=== PATIENT | male | born 1960 | race Caucasian/White ===

== ENCOUNTER 2022-12-17 09:07 | Outpatient (CLI) | payer OTHER, SELFPAY | END 2022-12-17 09:08 | disposition home or self-care (01) | PROVIDERS: PCP Family Medicine; Visit Provider Family Medicine | DX: Z00.00 Encounter for general adult medical examination without abnormal findings (principal); E78.00 Pure hypercholesterolemia, unspecified; Z12.5 Encounter for screening for malignant neoplasm of prostate | CPT/HCPCS: 80053; 80061; 84153 ==

== ENCOUNTER 2024-03-23 08:58 | Outpatient (CLI) | payer OTHER, SELFPAY | END 2024-03-23 08:59 | disposition home or self-care (01) | LOC: NFLDREF 03-24 15:23 | PROVIDERS: PCP Family Medicine; Referring Provider Family Medicine; Visit Provider Family Medicine | DX: Z13.1 Encounter for screening for diabetes mellitus (principal); Z13.6 Encounter for screening for cardiovascular disorders; Z12.5 Encounter for screening for malignant neoplasm of prostate | CPT/HCPCS: 80053; 80061; G0103 ==

== ENCOUNTER 2024-04-13 10:52 | Outpatient (CLI) | payer OTHER, SELFPAY ==
--- NOTE | 2024-04-13 12:14 | W.ANESCHARGE ---
Anesthesia Charges Start Date/Time Anesthesia Start Date: 04/13/24 Anesthesia Start Time: 11:41 Stop Date/Time Anesthesia Stop Date: 04/13/24 Anesthesia Stop Time: 12:11
== END 2024-04-13 10:53 | disposition home or self-care (01) ==
LOC: OP CLINIC 10:53
PROVIDERS: PCP Family Medicine; Visit Provider Surgery
DX: Z12.11 Encounter for screening for malignant neoplasm of colon (principal); K63.5 Polyp of colon; K57.30 Diverticulosis of large intestine without perforation or abscess without bleeding
CPT/HCPCS: 00811; 45385; 88305; J2704

== ENCOUNTER 2024-08-26 12:23 | Outpatient (CLI) | payer OTHER, SELFPAY | END 2024-08-26 12:24 | disposition home or self-care (01) | LOC: NFLDREF 12:24 | PROVIDERS: PCP Family Medicine; Visit Provider Family Medicine | DX: S40.861A Insect bite (nonvenomous) of right upper arm, initial encounter (principal) | CPT/HCPCS: 86618 ==

== ENCOUNTER 2025-08-12 11:39 | Emergency (ER) | payer OTHER, SELFPAY ==
[2025-08-12 11:47] VITALS: BP 162/97; PULSE 62; RESP 18; TEMP 36.2; O2SAT 97
--- NOTE | 2025-08-12 11:54 | ED_ITS ---
HPI - Abdominal Pain General Time Seen by Provider: 11:54 Date Seen: 08/12/25 Chief Complaint: Abdominal Pain Stated Complaint: Abdominal pain Time Seen by Provider: 08/12/25 11:53 Source: patient and RN notes reviewed Mode of arrival: ambulatory Limitations: no limitations History of Present Illness HPI narrative: Rodolfo is a very pleasant 64-year-old gentleman with history of elevated cholesterol, left inguinal hernia repair 5 years ago with mesh and without complications who comes to the emergency room for evaluation of pelvic pain. She notes the onset of pelvic pain above his pubic bone several weeks ago that has become increasingly worse. He notes that it seems to be over his bladder area any thinks he has noticed that he is going to the bathroom more often. He notes that he does do a job which involves quite a bit a lifting. He works at an [employer]. He cannot recall any specific trauma or exact moment when the pain started. Patient notes again that the pain has been increasing. Initially much worse with lifting or pickleball. Now it is even present when he is just moving around. At rest it seems to go away. The pain does occasionally radiate somewhat into his scrotum but not into his rectum. He does have some mild back pain today because he was recently lifting some heavy objects. This is not unusual for him. He has not noticed any unusual bulging in his lower abdomen or in his scrotum. He has no history of constipation fever unusual weight loss or night sweats. Related Data Previous Rx's ?Medication ?Instructions ?Recorded rosuvastatin 5 mg tablet 5 mg PO QHS #90 tabs 5 sildenafil (pulm.hypertension) 20 20 - 100 mg (1 - 5 x 20 mg) PO 07/20/25 mg tablet .PRN PRN sexual activity #60 tabs Allergies Allergy/AdvReac Type Severity Reaction Status Date / Time erythromycin base Allergy Mild abdominal Verified 08/12/25 14:57 Penicillins Allergy Unknown Verified 08/12/25 14:57 Sulfa (Sulfonamide Allergy Unknown Verified 08/12/25 14:57 Antibiotics) Review of Systems Status of ROS Reports: 10 or more systems reviewed and unremarkable except as noted in History and below Const Denies: fever, chills or fatigue ENMT Denies: nasal congestion Cardio Denies: chest pain, lightheadedness or shortness of breath with exertion Resp Denies: shortness of breath or cough GI Reports: abdominal pain; Denies: nausea, vomiting, diarrhea or constipation Reports: urinary frequency and urinary urgency; Denies: painful urination or blood in urine Musculo Reports: back pain (After playing pickle ball) Endo Denies: fatigue [facility] Medical History Hyperlipidemia ?E78.5 - Hyperlipidemia, unspecified (ICD-10) Dysfunction of eustachian tube ?H69.80 - Other specified disorders of Eustachian tube, unspecified ear (ICD- 10) Acute sinusitis ?J01.90 - Acute sinusitis, unspecified (ICD-10) Social History Smoking Status: Never smoker Do you use any of these nicotine containing products: None How often do you have a drink containing alcohol: monthly or less AUDIT-C Alcohol total score: 1 Non-prescribed substance use: denies use Exam Narrative: Exam Narrative: Alert and oriented, nontoxic in appearance. Mentation and speech normal Face symmetrical, external ears eyes nose clear. Oral cavity moist mucous memb ranes. Heart with regular rate and rhythm. Lungs are clear bilaterally. No CVA tenderness with percussion. Abdomen is soft and nontender. I do not notice any hernias in the lower abdomen in the inguinal area. Are without any pain with palpation. No unusual bulging in the scrotum or swelling or redness. Moving extremities without difficulty. Const: Vital Signs, click to edit/add: Vital Signs - 24 hr 08/12/25 11:47 08/12/25 13:52 Temperature 97.2 F L Pulse Rate [Pulse Oximeter] 62 61 Respiratory Rate 18 14 Blood Pressure [Ri ght Upper Arm] 162/97 H 142/93 H Pulse Oximetry 97 97 Oxygen Delivery Me thod Room Air Room Air Documenting provider has reviewed patient's vital signs: yes Course Course ED Course: Differential diagnosis includes but is not limited to diverticulitis, colitis, urinary retention, musculoskeletal injury. No palpation of hernia at this time. At this time will start with bladder scan post pre and postvoid. If that does not show any evidence of urinary retention would recommend CT of the abdomen along with CBC, comprehensive, CRP, urinalysis. Reevaluation(s) Reevaluation #1: Postvoid scan did not show any evidence of urinary retention. Thus we will pr oceed with labs and CT. Vital Signs Vital signs: Initial Vital Signs Temperature 97.2 F L 08/12/25 11:47 Temperature Source Temporal Artery Scan 08/12/25 11:47 Pulse Rate 62 08/12/25 11:47 Respiratory Rate 18 08/12/25 11:47 Blood Pressure 162/97 H 08/12/25 11:47 Blood Pressure Mean 118 H 08/12/25 11:47 Blood Pressure Position Sitting 08/12/25 11:47 Pulse Oximetry 97 08/12/25 11:47 Oxygen Delivery Method Room Air 08/12/25 11:47 Vital Signs Temperature 97.2 F L 08/12/25 11:47 Pulse Rate 62 08/12/25 11:47 Respiratory Rate 18 08/12/25 11:47 Blood Pressure 162/97 H 08/12/25 11:47 Pulse Oximetry 97 08/12/25 11:47 Oxygen Delivery Method Room Air 08/12/25 11:47 Temperature 97.2 F L 08/12/25 11:47 Pulse Rate 61 08/12/25 13:52 Respiratory Rate 14 08/12/25 13:52 Blood Pressure 142/93 H 08/12/25 13:52 Pulse Oximetry 97 08/12/25 13:52 Oxygen Delivery Method Room Air 08/12/25 13:52 Medications Administered Medications: Discontinued Medications Generic Name Dose Route Start Last Admin Trade Name Freq PRN Reason Stop Dose Admin Sodium Chloride 500 mls @ 500 mls/hr 08/12/25 12:33 08/12/25 12:49 0.9 % Sodium Chloride 500 Ml IV 08/12/25 13:32 500 mls/hr .Q1H ELVIA Administration MDM - Abdominal Pain MDM Narrative Medical decision making narrative: 1. Suprapubic abdominal pain-with the exception of right inguinal hernia, fat containing that is quite small no abnormalities noted on the CT. In addition CRP and white count are within normal limits. No evidence of urinary retention. No symptoms of prostatitis. At this time I am wondering if the pain he is experiencing is muscular in etiology. Suggest ibuprofen or Tylenol as needed for pain. Of course should he start experiencing blood per rectum or blood in his urine or increasing symptoms would have him return to the ED. 2. Right inguinal hernia-I did not palpate this but this was noted on CT. Would have Gene follow-up with our surgical consultants because his pain definitely increases with any sort of lifting. 3. Disposition-home at this time. Return for worsening symptoms and as needed. Medical Records Attestation: I reviewed the patient's medical records. Lab Data Attestation: I reviewed the patient's lab results. Labs: Lab Results 08/12/25 08/12/25 08/12/25 Range/Units 12:30 13:21 13:25 WBC 6.00 (4.50-11.00) K/uL RBC 5.05 (4.30-5.90) m/uL Hgb 15.8 (13.5-17.5) gm/dL Hct 47.5 (37.0-53.0) % MCV 94 (80-100) fL MCH 31 (26-34) pg MCHC 33 (32-36) gm/dL RDW Coeff of Alejandra 12.5 (11.5-15.5) % Plt Count 297 (140-440) K/uL Neut % (Auto) 62.2 (42.0-72.0) % Lymph % (Auto) 23.8 (20-44) % Pender % (Auto) 7.5 (0.0-11.0) % Eos % (Auto) 5.5 (0.0-7.0) % Baso % (Auto) 0.8 (0.0-3.0) % Neut # (Auto) 3.73 (1.7-7.0) K/uL Lymph # (Auto) 1.43 (0.90-2.90) K/uL Pender # (Auto) 0.50 (0.00-0.90) K/UL Eos # (Auto) 0.33 (0.00-0.50) K/uL Baso # (Auto) 0.05 (0.00-0.30) K/uL Abs Immat Gran (auto) 0.01 (0.00-0.30) K/uL Imm/Tot Granulo (auto) 0.2 % Sodium 139 (135-149) mmol/L Potassium 4.1 (3.6-5.1) mmol/L Chloride 101 (96-114) mmol/L Carbon Dioxide 24 (20-32) mmol/L Anion Gap 14 (7-15) mEq/L BUN 11 (7-30) mg/dL Creatinine 0.9 (0.5-1.5) mg/dL Estimated GFR 96 ml/min Glucose 85 (60-115) mg/dL Calcium 9.0 (8.4-10.6) mg/dL Total Bilirubin 0.7 (0.1-1.5) mg/dL AST 37 H (12-35) U/L ALT 41 (4-50) U/L Alkaline Phosphatase 59 (40-150) U/L C-Reactive Protein < 0.5 L (0.5-1.0) mg/dL Total Protein 8.0 (6.0-8.3) g/dL Albumin 4.8 (3.3-5.0) g/dL Urine Color Yellow (Yellow) Urine Appearance Clear (Clear) Urine pH 7.5 (5.0-8.5) Ur Specific [place] 1.020 (1.000-1.030) Urine Protein Negative (Negative) Urine Glucose (UA) Negative (Negative) Urine Ketones Negative (Negative) Urine Blood Negative (Negative) Urine Nitrite Negative (Negative) Urine Bilirubin Negative (Negative) Urine Urobilinogen 0.2 (0.2-1.0) Ur Leukocyte Esterase Negative (Negative) Urine RBC 0-2 (0-2) Urine WBC 0-2 (0-5) Ur Squamous Epith Cells None (None-Few) Urine Bacteria None (None) POC Creatinine 1.0 (0.6-1.3) mg/dl Imaging Data CT scan - abdomen: Attestation: I have reviewed the pertinent imaging results. My impression: I do not note any evidence of bowel obstruction. Radiologist's impression: Lower chest: Mild bibasilar atelectasis versus scarring Liver: Unremarkable. Normal in size and attenuation. No suspicious masses. Gallbladder and bile ducts: Status post cholecystectomy. No abnormal biliary ductal dilatation. Pancreas: Unremarkable. No mass or inflammation. Spleen: Unremarkable. Normal in size. No masses. Adrenal glands: Unremarkable. No nodules. Kidneys: Unremarkable. No suspicious masses, stones, or hydronephrosis. GI tract: Diverticulosis without pericolonic inflammation. No obstruction. Normal appendix. Vasculature: Abdominal aorta is normal in caliber. Mesenteric arteries are patent. Lymph nodes: No lymphadenopathy. Peritoneum/Abdominal Wall: Small fat-containing right inguinal hernia. Prior left inguinal hernia repair. No free air or significant free fluid. Pelvis: Unremarkable. Bones: Unremarkable for age. IMPRESSION: No acute findings within the abdomen or pelvis. Colonic diverticulosis without evidence for acute diverticulitis. Discharge Plan Discharge Clinical Impression: Hernia, inguinal, right, Abdominal pain, suprapubic Patient Disposition: Home, Self-Care Condition: Unchanged Additional Instructions: At this time the CT showed a very small right inguinal hernia. It contains a small amount of fat but no intestinal contents. Recommend follow-up with our surgical consult to see if they would want to repair this. The phone number for follow-up is [phone]. Ibuprofen or Tylenol as needed for the current discomfort. Return for worsening return especially fever, blood in urine or stool and as needed. Prescriptions: No Action rosuvastatin 5 mg tablet 5 mg PO QHS Qty: 90 0RF sildenafil (pulm.hypertension) 20 mg tablet 20 - 100 mg PO .PRN PRN (Reason: sexual activity) Qty: 60 2RF Follow Up/Referrals: Kingsley Delgadillo MD [Primary Care Provider, Family Practice] Stand Alone Forms: [employer] Info Instructions
--- OUTSIDE RECORDS SUMMARY | 2025-08-12 12:12 | XMS_ITS | Clinical Summary ---
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 Active DM/P-EPHED/ACETA MINOPH/DOXYLAM (NYQUIL ORAL) Take by mouth. 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 Gender Identity Not on file Sexual Orientation Not on file Obstetrics History Last Filed Vital Signs Vital Sign Reading Time Taken Comments Blood Pressure 120/83 12/02/2013 9:35 AM CDT Pulse 59 12/02/2013 9:35 AM CDT Temperature 36.9 C (98.4 F) 10/21/2012 5:58 PM [employer]BE[employer] Respiratory Rate 16 12/02/2013 9:35 AM CDT Oxygen Saturation 98% 12/02/2013 9:35 AM CDT Inhaled Oxygen Concentration - - Weight 96.2 kg (212 lb 1.3 oz) 12/02/2013 7:58 A M CDT Height 182.9 cm (6') 10/21/2012 5:58 PM [employer] Body Mass Index 28.76 10/21/2012 5:58 PM [employer] Plan of Treatment Health Maintenance Due Date Last Done Comments Tetanus booster 1972 Depression screening for age 12+ 1973 HIV for age 15-65 1976 BMI (ht and wt on same day) for age 18+ 11/20/1979 Hepatitis C screening for ag e 18-79 11/20/1979 Lipids for age 45-75 2006 Pneumococcal series for age 50+ (1 of 1 - PCV) 11/20/2011 Zoster (shingles) series for age 50+ (1 of 2) 11/20/2011 Colonoscopy through age 75 12/03/2023 12/02/2013 COVID-19 vaccine series ( - 2024- season) 2025 Influenza Vaccine (#1) 2025 RSV vaccine for adults or (1 - 1-dose 75+ series) 2036 Hepatitis B series for 19+ Aged Out N o longer eligible based on patient's age to complete this topic Procedures Procedure Name Priority Date/Time Associated Diagnosis Comments COLONOSCOPY 12/02/2013 8:36 AM CDT from Last 3 Months or Most Recently Relevant to Health Maintenance Results * COLONOSCOPY (12/02/2013 8:36 AM CDT) 12/02/2013 8:36 AM CDT Narrative 12/02/2013 8:36 AM CDT Endoscopy Patient Name: Rodolfo Shay Procedure Date: 12/02/2013 Gender: Male Date of : 1960 Admit Type: Outpatient Procedure: Colonoscopy Proceduralist: Gavin Faust MD - [facility] Referring MD: Gavin Smith Indications/Pre-Op Diagnosis: Screening for colorectal malignant neoplasm Medications: Midazolam 2 mg IV, Fentanyl 100 micrograms IV Procedure Description: The patient had risks, benefits and alternatives explained to and gave informed consent. The patient had a stable cardiopulmonary status and judged an adequate candidate for conscious sedation. The endoscope was passed through the anus and advanced to the cecum, identified by appendiceal orifice & ileocecal valve. The colonoscopy was performed without difficulty. The patient tolerated the procedure well. The quality of the bowel preparation was good. Complications: No immediate complications. Estimated Blood Loss & Specimen: Estimated blood loss: none. Specimen collected: Yes and sent to Laboratory Findings: The perianal and digital rectal examinations were normal. The entire examined colon appeared normal on direct and retroflexion views. Impressions/Post-Op Diagnosis: - The entire examined colon is normal on direct and retroflexion views. Recommendation: - Use fiber, for example Citrucel, Fibercon, Konsyl or Metamucil. - Repeat colonoscopy in 10 years for surveillance. Gavin Faust MD 12/02/2013 9:04 AM This report has been signed electronically. Note Initiated On: 12/02/2013 8:36 AM Total Procedure Duration Time 0 hours 11 minutes 41 seconds Scope Withdrawal Time 0 hours 7 minutes 49 seconds Procedure Note Gavin Faust MD - 12/02/2013 9:04 AM CDT Endoscopy Patient Name: Rodolfo Shay Procedure Date: 12/02/2013 Gender: Male Date of : 1960 Admit Type: Outpatient Procedure: Colonoscopy Proceduralist: Gavin Faust MD - [facility] Referring MD: Gavin Smith Indications/Pre-Op Diagnosis: Screening for colorectal malignantneoplasm Medications: Midazolam 2 mg IV, Fentanyl 100 microgramsIV Procedure Description: The patient had risks, benefits and alternatives explained to andgave informed consent. The patient had a stable cardiopulmonary status and judged an adequate candidate for conscious sedation. The endoscope was passed through the anus and advanced to the cecum, identified by appendiceal orifice & ileocecal valve. The colonoscopywas performed without difficulty. The patient tolerated the procedurewell. The quality of the bowel preparation was good. Complications: No immediate complications. Estimated Blood Loss & Specimen: Estimated blood loss: none. Specimen collected: Yes and sent to Laboratory Findings: The perianal and digital rectal examinations were normal. The entire examined colon appeared normal on direct and retroflexion views. Impressions/Post-Op Diagnosis: - The entire examined colon is normal on direct and retroflexionviews. Recommendation: - Use fiber, for example Citrucel, Fibercon, Konsyl or Metamucil. - Repeat colonoscopy in 10 years for surveillance. Gavin Faust MD 12/02/2013 9:04 AM This report has been signed electronically. Note Initiated On: 12/02/2013 8:36 AM Total Procedure Duration Time 0 hours 11 minutes 41 seconds Scope Withdrawal Time 0 hours 7 minutes 49 seconds us Gavin Faust MD PROCEDURE ORD Final Resul t from Last 3 Months or Most Recently Relevant to Health Maintenance Insurance [facility] Advance Directives * Full Code (Latest Code Status on File) Date Activated Date Inactivated Comments 12/02/2013 7:51 AM 12/02/2013 11:47 AM Care Teams Stitch Bonding Machine Tender Helper Relationship Specialty Start Date End Date Gavin Smith MD [address] [facility] [address] [place] [id number] PCP - General Family Practice 12/01/13
--- OUTSIDE RECORDS SUMMARY | 2025-08-12 12:12 | XMS_ITS | Clinical Summary ---
Author Organization [facility] Address [address], [place] [address] Care Team Providers Care Job Compositor Name Role Phone Needs Pcp, Assignment Primary Care Provider [phone] Source Comments You are receiving this document as you are listed as the primary care provider,follow-up provider, or the patient has been referred to you for consultation.This is in compliance with the Medicare and[facility] EHR Incentive Program,which states Providers who transition their patient to another setting of careor provider of care or refers their patient to another provider of care shouldprovide summary care record for each transition of care or referral. Key Travel Allergies Active Allergy Reactions Criticality Noted Date Comments Erythromycin 10/22/2006 PN: LW Reaction: nausea Penicillins 08/16/2003 PN: LW Reaction: Rash, Generalized Sulfa Antibiotics 08/16/2003 PN: LW Reaction: Pruritis, Generalized Medications NIACIN OR Active diclofenac (AKA CATAFLAM) 50 MG tablet 2 08/05/2018 Active Active Problems No known active problems Immunizations Immunization Administration Dates Next Due DT Ped 05/15/1991 HepA Adult (19+ yrs) 07/27/1998,01/25/1997 Influenza, Unspecified Formulation 08/16/2003 OPV, Trivalent (Orimune or tOPV) 01/25/1997 Td 10/09/2005,01/25/1997 Typhoid (Typhim Vi, IM) 10/09/2005 Family History Medical History Relation Name Comments Atrial Fib Father High Blood Pressure Father Valve Dz Father Alzheimer's Mother High Blood Pressure Mother High Cholesterol Mother High Cholesterol Brother Relation Name Status Comments Father Mother Brother Social History Tobacco Use Types Packs/Day Years Used Date Smoking Tobacco: Never Smokeless Tobacco: Never Tobacco Cessation:Counseling Given: No Alcohol Use Standard Drinks/Week Comments Yes 3 (1 standard drink = 0.6 oz pure alcohol) Alcoholic Drinks/day: Amount:1-2 drinks; Freq:2-3/week ; Sex and Gender Information Value Date Recorded Sex Assigned at Not on file Legal Sex Male 4:18 AM CDT Gender Identity Not on file Sexual Orientation Not on file 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 Industry 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 Start 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 Job 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, 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 Not on file Not on file Not on file Last Filed Vital Signs Vital Sign Reading Time Taken Comments Blood Pressure 127/85 02/01/2019 2:31 PM CDT Pulse 75 02/01/2019 2:31 PM CDT Temperature 36.6 C (97.9 F) 02/01/2019 2:31 PM CDT Respiratory Rate 20 02/01/2019 2:31 PM CDT Oxygen Saturation 96% 02/01/2019 2:31 PM CDT Inhaled Oxygen Concentration - - Weight 98 kg (216 lb) 12/02/2014 11:39 AM CDT Height 195.6 cm (6' 5) 12/02/2014 11:39 AM CDT Body Mass Index 25.61 12/02/2014 11:39 AM CDT Plan of Treatment Health Maintenance Due Date Last Done Comments Hep C Screening (Preventive Services) 1960 PSA Screening Discussion 1960 HIV Screening (Preventive Services) 1977 Adult Preventive Visit 11/20/1979 Pneumococcal Vaccine 50+ Yrs (1 of 1 - PCV) 11/20/2011 Zoster/Shingles Vaccine (1 of 2) 11/20/2011 DTaP/Tdap/Td Vaccine (4 - Tdap) 10/09/2015 10/09/2005, 01/25/1997, 05/15/1991 Cholesterol 11/12/2018 11/12/2013, 11/07, 03/20/1999, Additional history exists Colonoscopy 12/03/2023 12/02/2013 (Completed) COVID-19 Vaccine ( season) 2025 Influenza Vaccine (#1) 2025 08/16/2003 RSV Vaccine (1 - 1-dose 75+ series) 2036 IPV (Polio) Vaccine Aged Out 01/25/1997 No longe r eligible based on patient's age to complete this topic HepA Vaccine Aged Out 07/27/1998, 01/25/1997 No lo nger eligible based on patient's age to complete this topic HepB Vaccine Aged Out No longer eligi ble based on patient's age to complete this topic Hib Vaccine Aged Out No longer eligi ble based on patient's age to complete this topic MCV4 Vaccine Aged Out No longer eligi ble based on patient's age to complete this topic Meningococcal B Vaccine Aged Out No l onger eligible based on patient's age to complete this topic Procedures Procedure Name Priority Date/Time Associated Diagnosis Comments LIPID PANEL & DIRECT LDL (IF NEEDED) Routine 11/12/2013 9:30 AM REGISTERED MAIL CLERK Well adult exam from Last 3 Months or Most Recently Relevant to Health Maintenance Results * Lipid Panel and Direct LDL(If Needed) (11/12/2013 9:30 AM REGISTERED MAIL CLERK) Cholesterol 185 0 - 200 mg/dL HP CONVERSION Triglycerides 64 0 - 149 mg/dL HP CONVERSION HDL Cholesterol 44 >39 mg/dL HP CONVERSION Cholesterol/HDL Ratio Screen 4.2 HP CONVERSION LDL Calculated 128 19 - 130 mg/dL HP CONVERSION Hours Fasting 10 HP CONVERSION 11/12/2013 9:30 AM REGISTERED MAIL CLERK 11/12/2013 11:23 AM REGISTERED MAIL CLERK Narrative HP CONVERSION - 11/12/2013 2:38 PM REGISTERED MAIL CLERK Performed at [facility] [address] [place] [address] us Gavin Smith MD LAB_1 Final Resu lt HP CONVERSION from Last 3 Months or Most Recently Relevant to Health Maintenance Insurance [facility] Care Teams Job Compositor Relationship Specialty Start Date End Date Needs Pcp, Romario [address] [place], [place] [id number] PCP - General 09/03/24
--- NOTE | 2025-08-12 12:32 | CRLHL7_ITS ---
For Patients: As a result of the Century Cures Act, medical imaging exams and procedure reports are released immediately into your electronic medical record. You may view this report before your referring provider. If you have questions, please contact your health care provider. INDICATION: Pelvic pain x3 weeks. TECHNIQUE: CT abdomen and pelvis acquired with 114 cc of Isovue 370 IV contrast. COMPARISON: None. FINDINGS: Lower chest: Mild bibasilar atelectasis versus scarring Liver: Unremarkable. Normal in size and attenuation. No suspicious masses. Gallbladder and bile ducts: Status post cholecystectomy. No abnormal biliary ductal dilatation. Pancreas: Unremarkable. No mass or inflammation. Spleen: Unremarkable. Normal in size. No masses. Adrenal glands: Unremarkable. No nodules. Kidneys: Unremarkable. No suspicious masses, stones, or hydronephrosis. GI tract: Diverticulosis without pericolonic inflammation. No obstruction. Normal appendix. Vasculature: Abdominal aorta is normal in caliber. Mesenteric arteries are patent. Lymph nodes: No lymphadenopathy. Peritoneum/Abdominal Wall: Small fat-containing right inguinal hernia. Prior left inguinal hernia repair. No free air or significant free fluid. Pelvis: Unremarkable. Bones: Unremarkable for age. IMPRESSION: No acute findings within the abdomen or pelvis. Colonic diverticulosis without evidence for acute diverticulitis. Please note that all CT scans at this facility use dose modulation, iterative reconstruction, and/or weight-based dosing when appropriate to reduce radiation dose to as low as reasonably achievable. Dictated by Ronnie Jasso MD @ 08/12/2025 2:44:19 PM (Electronically Signed)
[2025-08-12 12:45] LABS: Hematocrit* 47.5 % (37.0-53.0); Hemoglobin* 15.8 gm/dL (13.5-17.5); Immature Granulocytes Abs Auto 0.01 K/uL (0.00-0.30); Immature Granulocytes Pct Auto 0.2 %; Lymphocytes Absolute Auto 1.43 K/uL (0.90-2.90); Mean Corpuscular HGB Conc 33 gm/dL (32-36); Mean Corpuscular Hemoglobin 31 pg (26-34); Mean Corpuscular Volume 94 fL (80-100); RDW Coefficient of Variation % 12.5 % (11.5-15.5); Red Blood Count* 5.05 m/uL (4.30-5.90); White Blood Count* 6.00 K/uL (4.50-11.00)
[2025-08-12] MEDS: 0.9 % SODIUM CHLORIDE 500 ML 500 ML IV (12:49)
[2025-08-12 13:06] LABS: Slide Review Reflex No
[2025-08-12 13:24] LABS: Creatinine, Point-of-Care* 1.0 mg/dl (0.6-1.3)
[2025-08-12 13:25] LABS: Albumin* 4.8 g/dL (3.3-5.0); Chloride* 101 mmol/L (96-114); Potassium* 4.1 mmol/L (3.6-5.1); Sodium* 139 mmol/L (135-149)
[2025-08-12 13:28] LABS: Alanine Aminotransferase* 41 U/L (4-50); Aspartate Amino Transferase* 37 U/L (12-35); Blood Urea Nitrogen* 11 mg/dL (7-30); Creatinine* 0.9 mg/dL (0.5-1.5); Estimated Glomerular Filt Rate 96 ml/min
[2025-08-12 13:29] LABS: Alkaline Phosphatase* 59 U/L (40-150); Anion Gap 14 mEq/L (7-15); Bilirubin Total* 0.7 mg/dL (0.1-1.5); Calcium* 9.0 mg/dL (8.4-10.6); Carbon Dioxide* 24 mmol/L (20-32); Glucose* 85 mg/dL (60-115); Total Protein* 8.0 g/dL (6.0-8.3)
[2025-08-12 13:49] LABS: Appearance Urine Clear (Clear)
[2025-08-12 13:52] VITALS: BP 142/93; PULSE 61; RESP 14; O2SAT 97
== END 2025-08-12 15:41 | disposition home or self-care (01) ==
PROVIDERS: Emergency Provider Family Medicine; PCP Family Medicine
DX: R10.24 Suprapubic pain (principal); K40.90 Unilateral inguinal hernia, without obstruction or gangrene, not specified as recurrent; Z88.0 Allergy status to penicillin; Z88.2 Allergy status to sulfonamides
CPT/HCPCS: 36415; 74177; 80053; 81001; 82565; 85025; 86140; 96360; 99284; 99285; J7030; Q9967